=== PATIENT | female | born 1995 | race Caucasian/White ===

== ENCOUNTER 2024-04-19 09:50 | Emergency (ER) | payer SELFPAY ==
[~2024-04-19] VITALS: Wt 47.6 kg
[2024-04-19] MEDS ORDERED: Amoxicillin/Clavulanate Pota 875 MG TAB PO ONE (10:25)
[2024-04-19] MEDS ORDERED: CIPROFLOXACIN H10 ML OPH (10:27)
[2024-04-19] MEDS ORDERED: AMOX-CLAV 875-1 EACH PO (10:27)
== END 2024-04-19 10:32 | disposition home or self-care (01) ==
LOC: ED 09:50
DX: H66.91 Otitis media, unspecified, right ear (principal); H60.91 Unspecified otitis externa, right ear; Z87.891 Personal history of nicotine dependence

== ENCOUNTER 2024-12-02 16:57 | Emergency (ER) | payer SELFPAY ==
[~2024-12-02] VITALS: Wt 90.7 kg
[~2024-12-02 16:57] MED LIST: AMOX-CLAV 875-1 EACH PO; CIPROFLOXACIN H10 ML OPH
[2024-12-02] MEDS ORDERED: AMOX-CLAV 875-1 EACH PO (17:31)
== END 2024-12-02 17:37 | disposition home or self-care (01) ==
LOC: ED 16:57
DX: H66.91 Otitis media, unspecified, right ear (principal); Z79.899 Other long term (current) drug therapy; Z98.890 Other specified postprocedural states

== ENCOUNTER 2025-02-16 00:46 | Emergency (ER) | payer SELFPAY ==
[~2025-02-16] VITALS: Ht 149.8 cm; Wt 90.7 kg
== END 2025-02-16 01:30 | disposition home or self-care (01) ==
LOC: ED 00:46
DX: O26.892 Other specified pregnancy related conditions, second trimester (principal); H60.91 Unspecified otitis externa, right ear; Z3A.25 25 weeks gestation of pregnancy; Z79.899 Other long term (current) drug therapy; Z90.89 Acquired absence of other organs